=== PATIENT | female | born 1950 | race Caucasian/White ===

== ENCOUNTER 2017-02-12 00:35 | Inpatient (IN) | payer OTHER ==
--- NOTE | ~2017-02-12 | DS ---
Discharge Summary [facility] [address] [place]. [address] NAME: FATMATA OLIVO : 52 STATUS : DIS Henry PAT#: [id number] AGE: 66 ADM/REG DATE : 02/12/17 MR#: [id number] REPORT SERV DATE: 02/14/17 DICTATED BY: ROSALIO STEVENS DATE: 02/13/17 REPORT STATUS : Draft TRANSCRIBED BY: MODRober DATE: 02/13/17 ADMISSION DATE: 02/12/2017 DISCHARGE DATE: 02/13/2017 DISCHARGE DIAGNOSES: 1. Acute stroke, ischemic, right parietal lobe. 2. Recent strokes, 10/2016, involving right parietal and right occipital region. 3. Significant intracranial stenosis of the right middle cerebral artery. 4. Coronary artery disease with bypass 1996, PCI 1997, PCI 06/2016. 5. Peripheral arterial disease with previous right carotid endarterectomy with Bovine patch on 10/15/2016 and right leg atherectomy of superficial femoral and popliteal arteries 06/30/2016. 6. Hypertension. 7. Cigarette smoker. 8. Hypothyroidism. 9. Empty sella syndrome. 10.Obesity with body mass index 38.6. 11.Demand ischemia with elevation of troponin. 12.Panic attacks with insomnia. HISTORY: The patient was hospitalized here 10/2016 with acute ischemic stroke to the right parietal and right occipital area. During that hospitalization, she was found to have significant carotid artery stenosis and underwent a right internal carotid endarterectomy with Dr. Nevarez on 10/15/2016. The patient presents to our emergency room with 2 to 3 days of left-sided facial numbness, also reportedly involving left side of her tongue, left upper extremity. Because of this, she was referred to our team for inpatient care. HOSPITAL COURSE: Imaging included CT of the brain without contrast showing her old infarctions. No acute abnormality noted. MRI of the brain on 02/12/2017 revealed acute infarctions of the right parietal lobe and atrophy and old strokes. MRA of the brain showed significant stenosis in the right middle cerebral artery distribution. MRA of the neck revealed 50% to 60% stenosis of the origin of the left internal carotid. No evidence of right carotid stenosis. Echocardiogram on 02/13/2017 left atrial enlargement 4.9 cm, left ventricular ejection fraction 55%, calcified aortic valve without aortic stenosis. No left- to-right shunt. The patient was noted to have some mild elevation of troponin going up to 0.21 and 0.19. There was no chest pain that was angina-like. No ischemic changes on her EKG. She has an old stable right bundle-branch block. Cardiology from [facility] saw her and felt this was a demand elevation of troponin and not an MO. Neurology, Dr. Ag, saw the patient in consultation and recommended the addition of Aggrenox to Plavix along with baby aspirin. I confirmed this with Dr. Ag. She felt the patient was having progressive strokes with this right MCA stenosis and felt this was Discharge Summary [place] [id number] [place]. [address] NAME: FATMATA OLIVO : 52 STATUS : DIS Henry PAT#: [id number] AGE: 66 ADM/REG DATE : 02/12/17 MR#: [id number] REPORT SERV DATE: 02/14/17 DICTATED BY: ROSALIO STEVENS DATE: 02/13/17 REPORT STATUS : Draft TRANSCRIBED BY: MELVI DATE: 02/13/[address] Ag, Cardiology, and myself have talked with the patient about the importance of discontinuing the use of tobacco. She is motivated. Physical Therapy saw her. Occupational Therapy, they recommended outpatient PT with a walker, so we are making those arrangements. DISCHARGE MEDICATIONS: 1. Aspirin 81 mg daily. 2. Plavix 75 mg daily. 3. Aggrenox 200/25 one tablet twice a day (see note above about conversation with Dr. Ag). 4. Lipitor 80 mg daily. 5. Vitamin B12 1000 mcg IM every 30 days. 6. Flexeril 10 mg t.i.d., which she takes chronically for back pain. 7. Percocet 10/325, she takes up to 5 times a day per her pain and primary doctor. 8. Imdur 60 mg daily. 9. Ativan 2 mg t.i.d. which is a chronic medicine for her for panic attack and anxiety. 10.Cozaar 25 mg daily has been added for hypertension control for secondary stroke prophylaxis. 11.Metoprolol 25 mg. She takes it once a day only. 12.Zdsn-rsj-oetduhq nicotine patch 14 mg size daily. 13.Nexium 20 mg daily. 14.Dalbo Thyroid 60 mg daily (her TSH was 1.07 on 10/11/2016). 15.Tylenol 650 q.6 hours p.r.n. mild pain. 16.Antivert 25 mg daily p.r.n. dizziness. 17.Nitroglycerin 0.4 mg sublingual p.r.n. 18.Lasix 20 mg daily p.r.n. significant fluid retention. 19.Estradiol 0.05 mg patch, change every Wednesday. I spent 55 minutes today with the patient and with Dr. Ag with discharge planning. LOWELLG/USMANL Rosalio Stevens M.D. / [id number] CC: Tod Marino M.D. Larry Sprouse II, M.D. C. Samuel Ledford, M.D.
--- NOTE | ~2017-02-12 | HP ---
History And Physical [place] [id number] [facility] [place]. [address] NAME: FATMATA OLIVO : 52 STATUS : ADM Henry PAT#: [id number] AGE: 66 ADM/REG DATE : 02/12/17 MR#: [id number] REPORT SERV DATE: 02/12/17 DICTATED BY: KANA HYMAN DATE: 02/12/17 REPORT STATUS : Draft TRANSCRIBED BY: MODRober DATE: 02/12/17 DATE OF ADMISSION: 02/12/2017 POINT OF ENTRY: [facility] Emergency Department. PRIMARY ASSISTANT BOILER OPERATOR: Dr. Goode. CHIEF COMPLAINT: Chest pain and facial numbness and tingling. HISTORY OF PRESENT ILLNESS: Ms. Olivo is a 66-year-old female with a history of coronary artery disease with prior coronary artery bypass grafting as well as peripheral artery disease, hypertension, hyperlipidemia, and recent admission to our hospital for acute cerebrovascular accident, who presents to the emergency department today with multiple complaints including a two to three-day history of facial numbness and tingling as well as isolated episode of chest pain yesterday. The patient states that for the past two to three days she has had periods of facial numbness and tingling. She states that over the last two to three days various locations on her face, scalp, left side of her neck will have periods of numbness and tingling. She also states that her left arm is feeling a little weaker than its baseline for which she has some residual weakness from her prior cerebrovascular accidents. The patient also states that she suffered a period of chest pain yesterday, described as achy, located at substernal, without any shortness of breath, radiation. This resolved with some sublingual nitroglycerin and has not returned. She states that it was not nearly as severe as the chest pain she experienced in 06/2016 when she was admitted for non-ST- elevation myocardial infarction and underwent PCI. Initial evaluation in the emergency department notable for a blood pressure initially of 177/101, this has improved now. Troponin elevated at 0.21. EKG is nonischemic. CT scan of the brain was unremarkable. She was subsequently admitted to the Hospitalist Service for further evaluation and management. The patient was admitted to the Hospitalist Service in 10/2016 for left upper extremity weakness and numbness and tingling, found to have evidence of acute cerebrovascular accident of the right parietal and occipital regions. She is also found to have high-grade right carotid stenosis and underwent carotid endarterectomy. The patient also has some moderate left-sided carotid arterial stenosis. The patient states that after her discharge she has since followed up with Dr. Nevarez and had further imaging done in December of this year, which again rated as moderate in severity with plans for continued surveillance and monitoring. The patient reports she continues to smoke but states she has actually cut down now to about a half pack per day. MEDICAL HISTORY: 1. Coronary artery bypass grafting and PCI with recent admission for Ayx-QQ-jtyagwdln myocardial infarction in June 2016. History And Physical [address] [address] NAME: FATMATA OLIVO : 52 STATUS : ADM Henry PAT#: [id number] AGE: 66 ADM/REG DATE : 02/12/17 MR#: [id number] REPORT SERV DATE: 02/12/17 DICTATED BY: KANA HYMAN DATE: 02/12/17 REPORT STATUS : Draft TRANSCRIBED BY: MELVI DATE: 02/12/17 2. Peripheral artery disease, status post bilateral lower extremity revascularization. 3. Carotid arterial disease, status post right carotid endarterectomy. 4. Hypertension. 5. Hyperlipidemia. 6. Hypothyroidism. 7. Active tobacco abuse. 8. History of stressor accident involving the right parietal and occipital lobes. 9. History of chronic systolic congestive heart failure, most recent ejection fraction is now 55%. SURGICAL HISTORY: 1. Coronary artery bypass grafting. 2. Abdominal hysterectomy. 3. Appendectomy. 4. Lower extremity revascularization and stenting. 5. Right carotid endarterectomy. 6. Stomach stapling. 7. Breast reduction. 8. Breast implants. ALLERGIES: LISINOPRIL, MORPHINE, AND PENICILLIN. HOME MEDICATIONS: 1. Aspirin 325 mg daily. 2. Atorvastatin 80 mg daily. 3. Plavix 75 mg daily. 4. Vitamin B12 of 1000 mcg monthly. 5. Flexeril 10 mg t.i.d. 6. Nexium 20 mg daily. 7. Estradiol 0.1 mg topical patch weekly. 8. Lasix 20 mg daily p.r.n. 9. Imdur 60 mg daily. 10.Ativan 2 mg t.i.d. 11.Meclizine 25 mg daily p.r.n. 12.Lopressor 25 mg daily. 13.Nitroglycerin 0.4 mg sublingual p.r.n. 14.Percocet 10/325 one tab five times daily. 15.[place] Thyroid 60 mg daily. SOCIAL HISTORY: She still smokes about a half pack per day. Denies any alcohol. Denies any illicits. FAMILY MEDICAL HISTORY: Living and healthy. Father with history of strokes. She is an only child. LABS AND IMAGIN. White count is 7.7, hemoglobin 11.7, hematocrit 36.9, and platelet count is 223. INR History And Physical [address] [place]. [address] NAME: FATMATA OLIVO : 52 STATUS : ADM Henry PAT#: [id number] AGE: 66 ADM/REG DATE : 02/12/17 MR#: [id number] REPORT SERV DATE: 02/12/17 DICTATED BY: KANA HYMAN DATE: 02/12/17 REPORT STATUS : Draft TRANSCRIBED BY: MELVI DATE: 02/12/17 1.0. 2. Sodium is 144, potassium 3.7, chloride 108, carbon dioxide 25, BUN 9, creatinine 0.64, glucose is 108, calcium is 8.5, protein 6.4, albumin is 3.2, bilirubin is 0.3, ALT is 9, AST 10, and alkaline phosphatase is 84. 3. Troponin is 0.21. 4. EKG per my review shows a right bundle branch block with normal sinus rhythm with some inferior Q-waves but no evidence of any acute ischemic infarction. 5. CT scan of the brain shows no acute intracranial abnormality. 6. Chest x-ray per my review shows no acute cardiopulmonary abnormality. PHYSICAL EXAMINATION: VITAL SIGNS: Temperature is 97.7 degrees Fahrenheit, pulse is 93, respirations 12, saturating 98% on room air, and blood pressure is 127/101. On recheck, blood pressure is now 143/69. GENERAL: The patient is awake, alert, in no acute distress. Resting comfortably in bed. She is a well-developed, well-nourished, female. HEENT: Atraumatic and normocephalic. Moist mucous membranes. Pupils are equal, round, reactive to light and accommodation. Extraocular eye movements are intact. No scleral icterus. NECK: No jugular venous distention. Does have very faint carotid bruit on the left side. She is status post right carotid endarterectomy. CARDIAC: Regular rate and rhythm. No murmurs or gallops. Normal S1, S2. LUNGS: Clear to auscultation bilaterally. No wheezes, rhonchi, or crackles. ABDOMEN: Soft, nontender, nondistended with good bowel sounds. No rebound, guarding, or rigidity. EXTREMITIES: Warm and well perfused. Does have some chronic arterial insufficiency changes, has 1+ DP, PT pulses. SKIN: Warm and dry except for noted above. PSYCH: Affect appropriate. NEURO: Alert and orient x3. Cranial nerves 2 through 12 grossly intact. Speech is normal. Gait not assessed. ASSESSMENT: Ms. Olivo is a 66-year-old female who presents with multiple complaints including isolated episode of chest pain since resolved as well as two to three days history of facial numbness and tingling and found to have evidence of elevated troponin value. PROBLEM LIST: 1. Facial numbness and tingling concerning for subacute cerebrovascular accident. 2. Elevated troponin. 3. Active tobacco abuse. 4. Hypertension. 5. Peripheral vascular disease. 6. History of coronary artery disease. PLAN: 1. Facial numbness and tingling concerning for possible subacute cerebrovascular accident. We will admit the patient under the stroke/TIA pathway. We will order a repeat MRI, History And Physical [address] [address] NAME: FATMATA OLIVO : 52 STATUS : ADM Henry PAT#: [id number] AGE: 66 ADM/REG DATE : 02/12/17 MR#: [id number] REPORT SERV DATE: 02/12/17 DICTATED BY: KANA HYMAN DATE: 02/12/17 REPORT STATUS : Draft TRANSCRIBED BY: MODL DATE: 02/12/17 MRA, as well as Neurology consultation. Continue the patient on her home aspirin, Plavix, high-dose statin, as well as beta rm. 2. Elevated troponin level. The patient does report an isolated episode of chest pain, has now since resolved, has not returned. Her troponin value is mildly elevated concerning for possible type 1 iau-ER-byaoeytaz myocardial infarction. We will continue to trend out cardiac enzymes. Continue the patient's home medications of aspirin, Plavix, beta rm, and statin. We will start her on a heparin drip and consult Cardiology for assistance. 3. Active tobacco abuse. Counseled on need for tobacco cessation. Nicotine replacement protocol. 4. Peripheral vascular disease. Continue the patient's aspirin and Plavix and statin. Place her on a heparin drip. We will follow up results of the MRA to evaluate the status of her known left carotid arterial disease. 5. Hypertension. Continue the patient's home medications. IV hydralazine p.r.n. 6. DVT prophylaxis. Heparin infusion. CODE STATUS: The patient wished to be full code. JCB/MODL Kana Hyman MD / [id number] CC: Tod Marino M.D. C. Samuel Ledford, M.D.
--- NOTE | ~2017-02-12 | CN ---
Consultation Report [facility] [address] [place]. [address] NAME: FATMATA OLIVO : 52 STATUS : ADM Henry PAT#: [id number] AGE: 66 ADM/REG DATE : 02/12/17 MR#: [id number] REPORT SERV DATE: 02/13/17 DICTATED BY: DATE: REPORT STATUS : Draft TRANSCRIBED BY: MODL DATE: 02/12/17 NEUROLOGY CONSULTATION DATE OF CONSULTATION: 02/12/2017 REASON FOR CONSULT: Possible stroke. HISTORY OF PRESENT ILLNESS: This is a 66-year-old female who presented to [facility] secondary to three- to four-day duration of left-sided numbness with the patient reports the symptom started with the left fingers with the patient also noted to have perioral numbness with the patient reports numbness radiating to the top of the head and down to the base of her neck with the patient reports numbness waxing and waning, but remains constant and does not appear to have this significantly improved. The patient does have a history of previous stroke in October 2016 with the patient noted to have internal carotid artery stenosis, status post intervention by Vascular Surgery. The patient reports afterwards to have mild weakness as well as some numbness in the left upper and lower extremities and baseline ambulates with a cane, but it seems the numbness has become different compared to prior. The patient denies noticeable weakness prior to hospitalization, but does reports of a fall, prompting calling EMS as well as a hospital presentation. The patient does reports some difficulties finding words when the patient have some numbness with time and getting the correct words out, but otherwise denies any significant dysarthria. Denies recent illness, fever, chills, nausea, or vomiting. The patient does complain also of some chest pain. The patient does have continued tobacco usage and is trying to stop tobacco with the help of a patch. The patient denies using tobacco and the patch together. REVIEW OF SYSTEMS: At the time of evaluation, the patient's review of systems is negative except for those mentioned in the HPI. PAST MEDICAL HISTORY: Significant for history of panic attacks, with the patient reports prior usage of antidepressant, it does not appear to have any significant benefit. Currently, on Ativan 2 mg p.o. t.i.d. The patient also have coronary artery disease, status post coronary artery bypass surgery as well as peripheral artery disease, with the patient reports right lower extremity foot numbness secondary to previous revascularization, history of carotid artery disease and status post status post right carotid endarterectomy in October 2016, history of hypertension, hyperlipidemia as well as hypothyroidism, history of previous stroke in the right MCA territory that appeared to be embolic. The patient was noted to have allergy to lisinopril, morphine, and penicillin. MEDICATIONS: The patient's home medications consist of atorvastatin, aspirin, Plavix, vitamin B12, Flexeril, Nexium, estradiol, Ativan, Imdur, Lasix, meclizine, Lopressor, nitroglycerin, Percocet, and Elma Thyroid. SOCIAL HISTORY: The patient reports tobacco usage, roughly half a packet a day. Denies Consultation Report [address] [place]. [address] NAME: FATMATA OLIVO : 52 STATUS : ADM Henry PAT#: [id number] AGE: 66 ADM/REG DATE : 02/12/17 MR#: [id number] REPORT SERV DATE: 02/13/17 DICTATED BY: DATE: REPORT STATUS : Draft TRANSCRIBED BY: MODL DATE: 02/12/17 alcohol or illicit drug usage. FAMILY HISTORY: Significant for father of stroke in his 30s. PHYSICAL EXAMINATION: VITAL SIGNS: At the time of evaluation, the patient was noted to have vital signs with T-max of 97.8, heart rate of 66 to 76, respirations of 16 to 18, and blood pressure of 115 to 151 over 65 to 67. GENERAL: The patient is well developed, well nourished, in no acute distress. CARDIOVASCULAR: Regular rate and rhythm. No carotid bruits were otherwise auscultated. PULMONARY: Clear to auscultation bilaterally. NEUROLOGICAL EXAMINATION: Generally, the patient is alert and oriented to person, place, year, and month. Follows simple and 2-step commands. No significant dysarthria was noted. No aphasia was appreciated. Intact registration. Mild difficulty with recall. The patient appeared to be with mildly depressed affect at the time of evaluation. Cranial nerves II through XII, pupils equal, round, and reactive to light. Extraocular eye movement was noted to be intact at the time of evaluation with intact blink to threat response. Reports a symmetrical facial sensation and was noted to have decreased nasolabial fold on the left. Midline tongue. Normal palatal movement. Normal hearing. The patient demonstrated 5/5 bilateral upper extremity strength, with the patient noted to have 4/5 left lower extremity strength. The patient does have mild pronator drift in the left upper extremity at the time of evaluation, reports a symmetrical sensation. No clear sensory neglect was otherwise appreciated. Normal uywgiu-sr-ztdm examination without ataxia. The patient ambulate with a walker at the time of evaluation with a stable station. Reports at baseline ambulates with a cane. LABORATORY STUDIES: At the time of evaluation demonstrated white blood cell count of 7.4, hemoglobin of 11.5, hematocrit of 35.9, platelet count of 229. INR of 1.1. Chemistry panel, sodium 144, potassium is 3.9, chloride 108, bicarb 25, BUN of 9, creatinine of 0.64, glucose of 108, calcium of 8.5, cholesterol of 163, HDL of 53, LDL of 76, and triglyceride of 170. The patient's hemoglobin A1c was 6.3 with the patient noted to have a urinalysis that demonstrated negative leukocyte esterase, negative nitrite. The patient's MRI of the brain demonstrated embolic appearing right MCA distribution parietal stroke. The patient's MRA of the head demonstrate irregular arthrosclerotic disease, worse on the right compared to the left with the patient noted to have luminal narrowing secondary to atherosclerotic disease in the right MCA artery. The patient, in addition, was also noted to have a left internal carotid artery 50% to 60% stenosis. IMPRESSION: 1. Right parietal stroke with intracranial arthrosclerotic disease, the right appeared to be worsened compared to the left, with the stroke appeared to be embolic, likely from the right middle cerebral artery. We will continue aspirin, Plavix, and Lipitor. However, secondary to luminal narrowing, we will also add Aggrenox in the hope of Consultation Report [place] [id number] [facility] [place]. [address] NAME: FATMATA OLIVO : 52 STATUS : ADM Henry PAT#: [id number] AGE: 66 ADM/REG DATE : 02/12/17 MR#: [id number] REPORT SERV DATE: 02/13/17 DICTATED BY: DATE: REPORT STATUS : Draft TRANSCRIBED BY: MODL DATE: 02/12/17 stroke prevention. The patient's symptom has been ongoing for the past three to four days. NIH Stroke Scale was noted to be 3. Echocardiogram is pending. 2. Tobacco abuse. Counseled the patient regarding tobacco cessation for stroke prevention. 3. Panic attacks. The patient is already on Ativan 2 mg p.o. t.i.d. Spent significant time discussing with the patient regarding panic attack management with the patient reports prior antidepressant usage without significant benefits. Discussed with the patient regarding Psychiatric consult, which the patient just is not willing to proceed. The patient reports we will discuss with the patient's primary care doctor and discuss further options outpatient. RECOMMENDATIONS: 1. Continue aspirin, Plavix, and Lipitor. 2. We will add Aggrenox 25/200 mg p.o. b.i.d. for stroke prevention. 3. Echocardiogram pending. 4. PT/OT. MANEULA/MODL Elia Ag MD / [id number] CC: Tod Marino M.D.
--- NOTE | ~2017-02-12 | CN ---
Consultation Report [facility] [address] [place]. [address] NAME: FATMATA OLIVO : 52 STATUS : ADM Henry PAT#: [id number] AGE: 66 ADM/REG DATE : 02/12/17 MR#: [id number] REPORT SERV DATE: 02/12/17 DICTATED BY: DATE: REPORT STATUS : Draft TRANSCRIBED BY: MODL DATE: 02/12/17 CONSULTATION DATE OF CONSULTATION: 02/12/2017 CHIEF COMPLAINT/REASON FOR CONSULTATION: Positive troponin. HISTORY OF PRESENT ILLNESS: Mrs. Olivo is a 66-year-old female with a known history of coronary artery disease, carotid artery disease, status post carotid endarterectomy, CVA, hypertension and hyperlipidemia, who presented to the hospital with a two- to three-day history of facial numbness and tingling. She stated that she feels like she is having numbness and tingling all over her face, scalp, the left side of her neck and feels like her left arm is slightly weaker. As part of her review of systems, she indicated that she had a chest pain. She states that her chest pain was four days ago, it was slight, it was in the center of her chest and was completely relieved by one nitroglycerin tablet. She has only had to use two nitroglycerin tablets since her last PCI in June. She does not note increasing chest difficulty at rest. She does not note symptoms of progressive angina. PAST MEDICAL HISTORY: 1. History of coronary artery disease, status post coronary artery bypass grafting remote and PCI in 06/2016 to the left circumflex coronary artery. 2. Peripheral vascular disease. 3. Carotid artery disease, status post right carotid endarterectomy. 4. Recent CVA in 10/2016 of the right parietal and occipital regions. 5. Hypertension, suboptimal control. 6. Hyperlipidemia. 7. Continued tobacco abuse. ALLERGIES: THE H AND P NOTES LISINOPRIL ALLERGY. THE OUTPATIENT CARDIOLOGY NOTES NOTE THAT THE PATIENT WAS ON 2.5 MG OF LISINOPRIL AND ONLY NOTE AN ALLERGY OF PENICILLIN. SOCIAL HISTORY: The patient has smoked for many years, she continues to smoke a half a pack of cigarettes per day. She does not use alcohol or extracurricular drugs. FAMILY HISTORY: Significant for CVA. MEDICATIONS: Current inpatient medications include: 1. Aspirin 325 mg p.o. daily. 2. Ativan 1 mg t.i.d. 3. Flexeril 10 mg p.o. daily. 4. Habitrol patch topical. 5. Imdur 60 mg p.o. daily. 6. Lipitor 40 mg p.o. daily. 7. Lopressor 25 mg p.o. daily. Consultation Report [facility] [address] [place]. [address] NAME: FATMATA OLIVO : 52 STATUS : ADM Henry PAT#: [id number] AGE: 66 ADM/REG DATE : 02/12/17 MR#: [id number] REPORT SERV DATE: 02/12/17 DICTATED BY: DATE: REPORT STATUS : Draft TRANSCRIBED BY: MODL DATE: 02/12/17 8. Pepcid 20 mg p.o. b.i.d. 9. Percocet five times a day. 10.Plavix 75 mg p.o. daily. 11.Protonix 40 mg p.o. daily. 12.Thyroid 60 mg p.o. daily. REVIEW OF SYSTEMS: All systems were reviewed and are negative, except for as dictated in the HPI. PHYSICAL EXAMINATION: VITAL SIGNS: Blood pressures range between 177/101 to 151/65, pulse 93 to 74, respirations 16, oxygen saturations 97% on room air. GENERAL: Mrs. Olivo is a 66-year-old female. She is obese and in no distress. NECK: There was no jugular venous distention. I could not appreciate carotid bruits. Prior carotid endarterectomy scar noted on the right. HEART: Regular rate and rhythm. Soft S1 and S2. I could not appreciate murmurs, rubs, or gallops. LUNGS: Church are diminished, but there is no wheezes, rales, or rhonchi present. ABDOMEN: Obese and nontender. There is erythema under the abdominal pannus. EXTREMITIES: Femoral pulses were difficult to palpate due to body habitus. I could not appreciate any femoral bruits. Extremities are warm and well perfused. I could not appreciate any pitting edema. NEUROLOGIC: The patient appeared slow to answer questions, but I could not appreciate focal neurologic deficit. DATA: Hemoglobin 11.5, hematocrit 35.9, platelet count 229. INR is 1.1. Sodium 144, potassium 3.9, BUN 9, creatinine 0.64, glucose is 108. Total cholesterol 163, HDL 53, LDL 76, triglycerides 170. CPK is 43, MB is 2, troponin 0.21 to 0.19. An EKG demonstrated a right bundle-branch block without ischemic ST-T segment changes. There is no significant change from a previous EKG performed on 10/11/2016. IMPRESSION REPORT AND PLAN: 1. Transient ischemic attack versus cerebrovascular accident. 2. One episode of chest pain four days ago, completely relieved with nitroglycerin. 3. History of cerebrovascular accident, 10/2016. 4. History of coronary artery disease, status post coronary artery bypass graft with drug- eluting stent placed in 06/2016. 5. Hypertension, suboptimal control. 6. Continued tobacco abuse. 7. History of carotid endarterectomy. 8. Peripheral vascular disease. 9. Positive troponin, likely due to demand versus cerebrovascular accident. No evidence of acute coronary syndrome. RECOMMENDATIONS: Consultation Report [facility] [id number] [facility] [place]. [address] NAME: FATMATA OLIVO : 52 STATUS : ADM Henry PAT#: [id number] AGE: 66 ADM/REG DATE : 02/12/17 MR#: [id number] REPORT SERV DATE: 02/12/17 DICTATED BY: DATE: REPORT STATUS : Draft TRANSCRIBED BY: MODL DATE: 02/12/17 1. Would add angiotensin receptor rm for better blood pressure control. 2. Would arrange followup appointment with Dr. Goode in three to four weeks if the patient does not have any additional episodes of chest pain in the hospital. 3. Arrange for BNP on 02/13/2017. 4. Discontinue heparin as there is no evidence of acute coronary syndrome. 5. Would strongly recommend that the nursing staff observe the patient taking all her medicines, she currently has her medicines at her bedside. It has been my pleasure to participate in her care. LGC/MODL Sandra Gao M.D. / [id number] CC: Tod Marino M.D. C. Samuel Ledford, M.D.
[~2017-02-12 00:35] MED LIST: ARMOUR THYRO60 MG PO; ASA5GR PO; ASAB PO; ASABAYER PO; ATIVAN2 MG PO; ATV1 PO; B121000P IM; CRESTOR40 MG PO; ENDOCET1 TA3 PO; FLEX PO; HYOMAX-FT0.125 MG PO; IMDUR30 PO; IMDUR60 PO; L20 PO; L40 PO; LEVAQUIN750 MG PO; LEVBID PO; LIPITOR40 PO; LOP25 PO; MCZ25 PO; MINIVELLE1 EACH TOP; NEXIUM40 PO; NITROSTAT0.4 MG SL; NORV5 PO; PERCOCET1 TA4 PO; PHILLIPS CAPLETS PO; PLAVIX PO; PRAVACHOL40 MG PO; PRIN2.5 PO; REG PO; TOPXL100 PO; TRICOR145 PO; VIVELLE SY0.1 MG/24 TOP; VIVELLE-DOT0.1 MG TOP; VIVELLE0.1 MG TD
[2017-02-12 02:37] LABS: BASOPHILS 0.1 %; BASOPHILS ABSOLUTE 0.01 10/3/uL (0.0-0.16); EOSINOPHILS 0.7 %; EOSINOPHILS ABSOLUTE 0.05 10/3/uL (0.0-0.53); HEMATOCRIT 36.9 % (36.0-48.0); HEMOGLOBIN 11.7 g/dL (12.0-16.0); IMMATURE GRANULOCYTES 0.3 %; IMMATURE GRANULOCYTES ABSOLUTE 0.02 10/3/uL (0.0-0.11); LYMPHOCYTES 19.3 %; LYMPHOCYTES ABSOLUTE 1.48 10/3/uL (0.67-4.30); MANUAL DIFF NO %; MEAN CORPUS HGB CONC 31.7 g/dL (32.0-36.0); MEAN CORPUSCULAR HEMOGLOB 25.9 pg (26.0-34.0); MEAN CORPUSCULAR VOLUME 81.6 fL (80-100); MEAN PLATELET VOLUME 9.4 fL (9.2-13.0); MONOCYTES 5.6 %; MONOCYTES ABSOLUTE 0.43 10/3/uL (0.21-1.20); NEUTROPHILS ABSOLUTE 5.69 10/3/uL (2.02-8.40); PLATELET COUNT 223 10/3/uL (150-400); RBC DISTRIBUTION WIDTH 15.5 % (12.0-16.0); RED CELL COUNT 4.52 10/6/uL (4.0-5.6); WHITE BLOOD CELLS 7.7 10/3/uL (4.5-10.5)
[2017-02-12 02:45] LABS: PARTIAL THROMBO TIME 29.8 SEC (22.5-37.2); PROTIME (NOT ORD) 13.2 SEC (12.0-14.5)
[2017-02-12 02:57] LABS: ALBUMIN 3.2 G/DL (3.5-5.0); ALKALINE PHOSPHATASE 84 U/L (45-117); BUN (BLOOD UREA NITROGEN) 9 MG/DL (6-23); CALCIUM, SERUM 8.5 MG/DL (8.5-10.4); CHLORIDE, SERUM 108 MMOL/L (96-112); CO2 (CARBON DIOXIDE) 25 MMOL/L (24-34); CREATININE 0.64 MG/DL (0.55-1.02); GFR AFRICAN AMERICAN 109 ML/MIN (>=60); GFR NON AFRICAN AMERICAN 94 ML/MIN (>=60); GLOBULIN 3.2 G/DL (2.5-4.1); GLUCOSE, SERUM 108 MG/DL (60-99); POTASSIUM, SERUM 3.9 MMOL/L (3.5-5.3); SGOT(AST) 10 U/L (5-40); SGPT(ALT) 9 U/L (5-65); SODIUM, SERUM 144 MMOL/L (135-148); TOTAL BILIRUBIN 0.3 MG/DL (0-1.2); TOTAL PROTEIN 6.4 G/DL (6.0-8.5)
[2017-02-12 02:58] LABS: TROPONIN I 0.21 NG/ML (<0.05)
[2017-02-12 08:36] LABS: BASOPHILS 0.1 %; BASOPHILS ABSOLUTE 0.01 10/3/uL (0.0-0.16); EOSINOPHILS 1.2 %; EOSINOPHILS ABSOLUTE 0.09 10/3/uL (0.0-0.53); HEMATOCRIT 35.9 % (36.0-48.0); HEMOGLOBIN 11.5 g/dL (12.0-16.0); IMMATURE GRANULOCYTES 0.1 %; IMMATURE GRANULOCYTES ABSOLUTE 0.01 10/3/uL (0.0-0.11); LYMPHOCYTES 36.7 %; MEAN CORPUSCULAR HEMOGLOB 26.1 pg (26.0-34.0); MEAN CORPUSCULAR VOLUME 81.4 fL (80-100); MEAN PLATELET VOLUME 9.8 fL (9.2-13.0); MONOCYTES 6.9 %; MONOCYTES ABSOLUTE 0.51 10/3/uL (0.21-1.20); NEUTROPHILS ABSOLUTE 4.03 10/3/uL (2.02-8.40); PLATELET COUNT 229 10/3/uL (150-400); RBC DISTRIBUTION WIDTH 15.7 % (12.0-16.0); RED CELL COUNT 4.41 10/6/uL (4.0-5.6); WHITE BLOOD CELLS 7.4 10/3/uL (4.5-10.5)
[2017-02-12 08:37] LABS: MANUAL DIFF NO %
[2017-02-12 08:41] LABS: INTERNATIONAL NORMAL RATI 1.1 UNITS (-); PROTIME (NOT ORD) 13.7 SEC (12.0-14.5)
[2017-02-12 08:42] LABS: PARTIAL THROMBO TIME 57.1 SEC (22.5-37.2)
[2017-02-12 09:10] LABS: CHOL/HDL RATIO(NOT ORDER) 3.1 (0-5); CHOLESTEROL 163 MG/DL (< 200); CPK 43 U/L (0-200); HDL CHOLESTEROL 53 MG/DL (> 49); LDL CHOLESTEROL 76 MG/DL (< 130); NON-HDL CHOLESTEROL 110 MG/DL (< 160); TRIGLYCERIDE 170 MG/DL (< 150); TROPONIN I 0.19 NG/ML (<0.05)
[2017-02-12 10:40] LABS: ASCORBIC ACID (UR NOT ORDER) NEG (NEG); BILIRUBIN, URINE NEGATIVE (NEG); KETONE, URINE NEGATIVE (NEG); LEUKOCYTE ESTERASE(NOT OR NEG (NEG); WBC (NOT ORDERED) (RFLEX) < 1 (0-5)
[2017-02-13 08:48] LABS: BUN (BLOOD UREA NITROGEN) 11 MG/DL (6-23); CALCIUM, SERUM 8.5 MG/DL (8.5-10.4); CHLORIDE, SERUM 106 MMOL/L (96-112); CO2 (CARBON DIOXIDE) 27 MMOL/L (24-34); CREATININE 0.73 MG/DL (0.55-1.02); GFR AFRICAN AMERICAN 100 ML/MIN (>=60); GFR NON AFRICAN AMERICAN 86 ML/MIN (>=60); GLUCOSE, SERUM 96 MG/DL (60-99); SODIUM, SERUM 142 MMOL/L (135-148)
[2017-02-13] MEDS ORDERED: HABIT14 TOP (14:11)
[2017-02-13] MEDS ORDERED: AGGRENOX PO (14:11)
[2017-02-13] MEDS ORDERED: COZ25 PO (14:12)
[2017-02-13] MEDS ORDERED: T PO (14:14)
[2017-03-08] MEDS ORDERED: PRIN2.5 PO (13:17)
[2017-03-09] MEDS ORDERED: NORV5 PO (10:46)
[2017-04-22] MEDS ORDERED: LIPITOR80 MG PO (12:02)
== END 2017-02-13 15:04 | disposition home or self-care (01) | DRG 65 ==
LOC: ER 00:35 → 1SO 04:24
PROVIDERS: Hospitalist; Internal Medicine; Specialist
DX: I63.232 Cerebral infarction due to unspecified occlusion or stenosis of left carotid arteries (principal); I50.22 Chronic systolic (congestive) heart failure; I24.8 Other forms of acute ischemic heart disease; G81.94 Hemiplegia, unspecified affecting left nondominant side; I11.0 Hypertensive heart disease with heart failure; E78.5 Hyperlipidemia, unspecified; E03.9 Hypothyroidism, unspecified; I25.10 Atherosclerotic heart disease of native coronary artery without angina pectoris; I73.9 Peripheral vascular disease, unspecified; I70.0 Atherosclerosis of aorta; F41.0 Panic disorder [episodic paroxysmal anxiety]; E66.9 Obesity, unspecified; K21.9 Gastro-esophageal reflux disease without esophagitis; Z68.38 Body mass index [BMI] 38.0-38.9, adult; F17.210 Nicotine dependence, cigarettes, uncomplicated; E23.7 Disorder of pituitary gland, unspecified; Z79.82 Long term (current) use of aspirin; Z79.02 Long term (current) use of antithrombotics/antiplatelets; Z79.899 Other long term (current) drug therapy; I25.2 Old myocardial infarction; Z95.1 Presence of aortocoronary bypass graft; Z86.73 Personal history of transient ischemic attack (TIA), and cerebral infarction without residual deficits; Z88.0 Allergy status to penicillin; Z88.5 Allergy status to narcotic agent
CPT/HCPCS: 70450; 70544; 70548; 70551-52; 71010; 80048; 80053; 80061; 81001; 82550; 82553; 82607; 83036; 84484; 85025; 85610; 85730; 93005; 97161-GP; 97165-GO; 99285; A9270-GY; A9577; C8929; G8978-CH-GP; G8979-CH-GP; G8980-CH-GP; G8987-CJ-GO; G8988-CI-GO; J0360; Q9957